=== PATIENT | male | born 1995 | race Caucasian/White ===

== ENCOUNTER 2017-02-05 02:24 | Emergency (ER) | payer BC, OTHER ==
[~2017-02-05] VITALS: Ht 177.8 cm; Wt 86.0 kg
[2017-02-05 02:28] VITALS: BP 142/77; PULSE 134; TEMP 37.1; O2SAT 94; Ht 177.8 cm; Wt 86.0 kg
--- NOTE | 2017-02-06 02:06 | EMERGENCY ROOM VISIT NOTE ---
History First contact with patient: 02:30 Chief Complaint: ALCOHOL OVERDOSE Stated Complaint: MEDICALLY CLEARED [facility] PO Nursing Triage Summary: pt broughtin for dui by [facility] police, pd needs pt medically cleared for them to take him,blew .[id number] History of Present Illness The patient is a 21 year old male who presents to the Emergency Room for medical clearance. The patient is currently under police custody following a DUI. The patient had a breathalyzer of 0.270. The patient admits to drinking alcohol this evening, stating that he drank 6 beers. He does not report injury or trauma. He is without chronic medical disease. He does not have chest pain , chest tightness, shortness of breath, abdominal pain, nausea, vomiting, or diarrhea. He is without any complaints and rates his discomfort a 0/10. Review of Systems More than 10 systems were reviewed and otherwise negative with the exception of history of present illness. Past Medical/Surgical History No chronic medical disease Family History No pertinent family history Social History Smoking Status: Never Smoker Occupation Status: employed Current/Historical Medications No Active Prescriptions or Reported Meds Allergies Coded Allergies: No Known Allergies (Unverified , NONE, 02/05/17) Physical Exam Vital Signs Date Time Temp Pulse Resp B/P Pulse Ox O2 Delivery O2 Flow Rate FiO2 02/05/17 02:28 37.1 134 18 142/77 94 Room Air Pain Rating (0-10): 0 Physical Exam VITALS: Vitals are noted on the nurse's note and reviewed by myself. Vital signs stable. GENERAL: Well-developed, well-nourished, white male who appears intoxicated but pleasant. Patient is cooperative with the examination. HEAD: Normocephalic atraumatic. NECK: Supple without nuchal rigidity. No lymphadenopathy. No thyromegaly. Cervical spine is nontender. HEART: Regular rate and rhythm without murmurs gallops or rubs. LUNGS: Clear to auscultation bilaterally without wheezes, rales or rhonchi. No retractions or accessory muscle use. ABDOMEN: Positive normal bowel sounds x 4. Soft, nontender, without masses or organomegaly. No guarding or rebound tenderness. MUSCULOSKELETAL: No muscle atrophy, erythema, or edema noted. Full range of motion without joint tenderness in all extremities. No tenderness to palpation. Normal gait. Strength 5/5 throughout. NEURO: Patient was alert and oriented to person place and time. CN II through XII grossly intact. Medical Decision & Procedures Laboratory Results Test 02/05/17 02:39 Bedside Glucose 110 mg/dl (70-99) ED Course Physical exam and history were performed. Nursing notes and EMR were reviewed. Patient appears to have been drinking alcohol this evening and is now under police custody for DUI. The patient appears mildly intoxicated on examination. He does not have significant physical exam findings. Neurologically he is intact, and is able to walk and talk without difficulty. Bedside glucose was performed, and was 110. Overall the patient appears well and is felt to be medically cleared for discharge into police custody. The patient was invited back to the ER anytime with new, worsening, or concerning symptoms. The chart was completed utilizing [employer] Speech Voice Recognition Software. Grammatical errors, random word insertions, pronoun errors, and incomplete sentences are an occasional consequence of this system due to software limitations, ambient noise, and hardware issues. Any formal questions or concerns about the content, text, or information contained within the body of this dictation should be directly addressed to the provider for clarification. . Medical Decision Differential diagnosis: Etiologies such as alcohol intoxication, toxicologic, infection, hypoglycemia, electrolyte abnormalities, cardiac sources, intracerebral event, neurologic, as well as others were entertained. Impression Primary Impression: Alcohol intoxication Departure Information Dispostion Home / Self-Care Condition GOOD Prescriptions No Active Prescriptions or Reported Meds Forms HOME CARE DOCUMENTATION FORM, IMPORTANT VISIT INFORMATION Patient Instructions Alcohol Abuse - [facility], Alcohol Intoxication - [facility], [facility] Additional Instructions You were seen and evaluated today on an emergency basis only. This is not a substitute for, or an effort to provide, complete comprehensive medical care. It is not possible to recognize and treat all injuries or illnesses in a single emergency department visit. Keep well-hydrated. Small sips of water over a long period of time are better tolerated than large amounts at once. Tylenol 1000 mg every 6 hours as needed for pain (Maximum 3000 mg Tylenol in 24 hr period). Follow up with family doctor as needed. You are welcome to return to the emergency department anytime with new, worsening, or concerning symptoms.
== END 2017-02-05 02:49 | disposition home or self-care (01) ==
LOC: C.EDB 02:26
DX: F10.129 Alcohol abuse with intoxication, unspecified (principal)

== ENCOUNTER → 2017-02-05 | Outpatient (CLI) | payer OTHER | END | disposition home or self-care (01) | LOC: C.LAB 02:20 | DX: Z02.83 Encounter for blood-alcohol and blood-drug test (principal) ==